=== PATIENT | male | born 1955 | race African-American/Black ===

== ENCOUNTER 2017-03-30 10:48 | Inpatient (IN) | payer OTHER ==
[2017-03-27 10:00] LABS: WBC (NOT ORDERED) (RFLEX) 0 (0-5)
[2017-03-27 10:34] LABS: ASCORBIC ACID (UR NOT ORDER) NEG (NEG); BILIRUBIN, URINE NEGATIVE (NEG); KETONE, URINE NEGATIVE (NEG); LEUKOCYTE ESTERASE(NOT OR NEG (NEG)
[2017-03-27 10:43] LABS: HEMATOCRIT 33.2 % (40.0-51.0)
[2017-03-27 10:59] LABS: BUN (BLOOD UREA NITROGEN) 8 MG/DL (6-23); CALCIUM, SERUM 9.3 MG/DL (8.5-10.4); CHLORIDE, SERUM 106 MMOL/L (96-112); CO2 (CARBON DIOXIDE) 27 MMOL/L (24-34); CREATININE 1.17 MG/DL (0.70-1.30); GFR AFRICAN AMERICAN 78 ML/MIN (>=60); GFR NON AFRICAN AMERICAN 67 ML/MIN (>=60); GLUCOSE, SERUM 102 MG/DL (60-99); POTASSIUM, SERUM 4.4 MMOL/L (3.5-5.3); SODIUM, SERUM 142 MMOL/L (135-148)
--- NOTE | ~2017-03-30 | OP ---
Record Of Operation [facility] [address] [place]. [address] NAME: NISHA COHEN : 55 STATUS : DIS IN PAT#: [id number] AGE: 61 ADM/REG DATE : 03/30/17 MR#: [id number] REPORT SERV DATE: 04/02/17 DICTATED BY: HIEN HAWK DATE: 04/01/17 REPORT STATUS : Draft TRANSCRIBED BY: MODL DATE: 04/01/17 DATE OF PROCEDURE: 03/30/2017 TYPE OF OPERATION: 1. Robot-assisted laparoscopic radical prostatectomy. 2. Robot-assisted laparoscopic bilateral pelvic lymph node dissection. PREOPERATIVE DIAGNOSIS: Intermediate-risk prostate cancer. POSTOPERATIVE DIAGNOSIS: Intermediate-risk prostate cancer. INDICATIONS: Mr. Cohen is a 61-year-old . He has intermediate-risk prostate cancer with high volume on the left side of the prostate. He is here for radical prostatectomy. ANESTHESIA: General. COMPLICATIONS: None. IMPLANTS: 1. An 18-Sudanese Boyce catheter. 2. #10 round RACHEL drain. SPECIMEN: 1. Prostate seminal vesicles. 2. Anterior fat pad. 3. Pelvic lymph nodes. NARRATIVE: The patient was brought to the operating room and identified by his wristband. General anesthesia was induced and Ancef was given for preoperative antibiotics. He was placed in dorsal lithotomy position, prepped and draped in sterile fashion. A 16-Sudanese Boyce catheter was placed into his bladder. The balloon was inflated with 10 mL of sterile water. The abdomen was then insufflated to pressure of 15 mmHg using a Veress needle. A 12 mm port was placed in a supraumbilical position under direct vision. The abdomen was inspected. There were no adhesions. A standard SI port placement was performed with two 8 mm ports on the left side of the body and one 8 mm port on the right side of the body. The 12 mm port and a 5 mm port were placed in the right lower quadrant and right upper quadrant respectively as corporate administrative assistant ports. The patient was placed in Trendelenburg and the robot was docked. I began the operation by incising the peritoneum over the seminal vesicles and vas deferens. These structures were dissected out bilaterally. The vascular supply to the seminal vesicles was clipped and divided bilaterally. The vas deferens were clipped and divided bilaterally. The structures were then lifted anteriorly. Denonvilliers fascia was sharply incised and reflected onto the rectum from the base of the prostate to the apex. Next, the bladder was dropped off the anterior abdominal wall using electrocautery exposing the pubic bone and the prostate. The prostate was sharply divided with bipolar cautery and scissors. This tissue was sent to pathology as anterior fat pad. Record Of Operation [facility] [address] [place]. [address] NAME: NISHA COHEN : 55 STATUS : DIS IN PAT#: [id number] AGE: 61 ADM/REG DATE : 03/30/17 MR#: [id number] REPORT SERV DATE: 04/02/17 DICTATED BY: HIEN HAWK DATE: 04/01/17 REPORT STATUS : Draft TRANSCRIBED BY: OPAL DATE: 04/01/17 A high neurovascular bundle release was performed bilaterally. On the right side, I got between the prostatic capsule and the periprostatic vein and reflected these inferiorly to the groove between the prostate and the neurovascular bundle. On the left side, where the disease was, I entered the veins left a layer of vein on the prostate and then reflected this tissue laterally, the groove between the prostate and neurovascular bundle. Next, a bladder neck sparing operation was performed. The anterior bladder neck was then entered. Exposing a narrow bladder neck, the posterior bladder neck was divided. The posterior bladder neck was then divided off the prostate with electrocautery down to the previously dissected seminal vesicles and vas deferens. These were delivered into the operative field. The pedicles to the prostate were clipped and divided bilaterally. An antegrade nerve- sparing operation was performed bilaterally. Prior to performing the high anterior neurovascular bundle release, the endopelvic fascia were divided bilaterally. The levator fibers were brushed off the prostate bluntly. The puboprostatic ligaments were then divided sharply. This was in dorsal vein. Dorsal vein was taken with a 45 mm endovascular stapler. The urethra was then dissected free and was dissected circumferentially. A 3-0 V-Loc suture was used to oversew the dorsal venous bleeders and it was placed through the periosteum in the pubic bone at the urethral suspension stitch. After the nerve sparing operation was performed, the urethra was sharply divided, leaving adequate urethral length. The posterior striated sphincter was then divided and the prostate was free of all attachments. The prostate was placed into the EndoCatch bag. There was no ongoing bleeding in the pelvis. Next, attention was turned to the pelvic lymph nodes on the left side. The external iliac veins identified. All fibrofatty tissue beneath the external iliac vein within the operative fossa overlying the internal iliac vein was removed. Care was taken to clip and divide lymphatics and vessels proximally and distally. The obturator nerve was spared. Similarly, on the left side, the external vein was identified. All fibrofatty lymphatic tissue beneath the external iliac vein, was in the operative fossa and overlying the internal iliac vessels was removed. Care was taken to clip lymphatics and vessels proximally and distally. These were put into EndoCatch bag the pathology as pelvic lymph nodes. Next, the posterior striated sphincter was reconstructed with a 3-0 V-Loc suture in a fashion described by maddi. A running vesicourethral anastomosis was then performed with 2 interlocked 3-0 V-Loc sutures. The connection was water tight. An 18-Sudanese Boyce catheter was placed into the bladder. The balloon was inflated with 10 mL of sterile water. The bladder was irrigated and the connection was water tight. Next, the robot was removed. A #10 round RACHEL drain was placed in the left most lateral robotic port. The corporate administrative assistant port was closed with 0-Vicryl sutures using Michele-Mir device. All the ports were removed. The supraumbilical incision was enlarged at the skin and fascia level. The prostate and lymph nodes were removed and sent to pathology. The fascia was closed with a 0 Monocryl suture in a [id number] fashion. The wounds were irrigated clear. The subcutaneous tissues were closed with a 3-0 Vicryl suture in an interrupted fashion. Skin was closed with a 4-0 Monocryl suture in a subcuticular fashion. A Dermabond dressing was placed. The patient was awoken from anesthesia and transferred to the recovery room in stable condition. There were no complications. JKM/MODL Record Of Operation [facility] [address] [place]. [address] NAME: NISHA COHEN : 55 STATUS : DIS IN PAT#: [id number] AGE: 61 ADM/REG DATE : 03/30/17 MR#: [id number] REPORT SERV DATE: 05/15/17 DICTATED BY: HIEN HAWK DATE: 04/01/17 REPORT STATUS : Draft TRANSCRIBED BY: OPAL DATE: 04/01/17 Hien Hawk MD / [id number] CC: Hien Hawk MD NO PCP
[~2017-03-30 10:48] MED LIST: ACET500CAP PO; HYDROCHLOROT25 MG PO; MOBIC15 MG PO; PRILO PO; PRIN5 PO; VITAMIN D31000 UNIT PO
[2017-03-30 14:19] LABS: HEMOGLOBIN 8.6 g/dL (13.6-17.8)
[2017-03-30 14:24] LABS: HEMATOCRIT 28.3 % (40.0-51.0)
[2017-03-30 18:51] LABS: BASOPHILS 0.1 %; BASOPHILS ABSOLUTE 0.02 10/3/uL (0.0-0.16); EOSINOPHILS 0 %; HEMATOCRIT 32.4 % (40.0-51.0); HEMOGLOBIN 10.2 g/dL (13.6-17.8); IMMATURE GRANULOCYTES 0.5 %; IMMATURE GRANULOCYTES ABSOLUTE 0.07 10/3/uL (0.0-0.11); LYMPHOCYTES 7.2 %; LYMPHOCYTES ABSOLUTE 1.04 10/3/uL (0.67-4.30); MANUAL DIFF NO %; MEAN CORPUS HGB CONC 31.5 g/dL (32.0-36.0); MEAN CORPUSCULAR HEMOGLOB 24.8 pg (26.0-34.0); MEAN CORPUSCULAR VOLUME 78.6 fL (80-100); MEAN PLATELET VOLUME 8.1 fL (9.2-13.0); MONOCYTES 1.3 %; MONOCYTES ABSOLUTE 0.19 10/3/uL (0.21-1.20); NEUTROPHILS 90.9 %; NEUTROPHILS ABSOLUTE 13.16 10/3/uL (2.02-8.40); PLATELET COUNT 302 10/3/uL (150-400); RBC DISTRIBUTION WIDTH 19.9 % (12.0-16.0); RED CELL COUNT 4.12 10/6/uL (4.7-6.1); WHITE BLOOD CELLS 14.5 10/3/uL (4.5-10.5)
[2017-03-30 19:05] LABS: BUN (BLOOD UREA NITROGEN) 7 MG/DL (6-23); CALCIUM, SERUM 8.4 MG/DL (8.5-10.4); CHLORIDE, SERUM 105 MMOL/L (96-112); CO2 (CARBON DIOXIDE) 28 MMOL/L (24-34); CREATININE 1.03 MG/DL (0.70-1.30); GFR AFRICAN AMERICAN 90 ML/MIN (>=60); GFR NON AFRICAN AMERICAN 78 ML/MIN (>=60); POTASSIUM, SERUM 4.4 MMOL/L (3.5-5.3); SODIUM, SERUM 137 MMOL/L (135-148)
[2017-03-30 19:06] LABS: GLUCOSE, SERUM 181 MG/DL (60-99)
[2017-03-31 07:13] LABS: BASOPHILS 0.1 %; BASOPHILS ABSOLUTE 0.01 10/3/uL (0.0-0.16); EOSINOPHILS 0 %; HEMATOCRIT 33.7 % (40.0-51.0); HEMOGLOBIN 10.7 g/dL (13.6-17.8); IMMATURE GRANULOCYTES 0.4 %; IMMATURE GRANULOCYTES ABSOLUTE 0.06 10/3/uL (0.0-0.11); LYMPHOCYTES 10.4 %; LYMPHOCYTES ABSOLUTE 1.53 10/3/uL (0.67-4.30); MEAN CORPUS HGB CONC 31.8 g/dL (32.0-36.0); MEAN CORPUSCULAR HEMOGLOB 24.7 pg (26.0-34.0); MEAN CORPUSCULAR VOLUME 77.8 fL (80-100); MEAN PLATELET VOLUME 8.2 fL (9.2-13.0); MONOCYTES 14.7 %; MONOCYTES ABSOLUTE 2.16 10/3/uL (0.21-1.20); NEUTROPHILS 74.4 %; NEUTROPHILS ABSOLUTE 10.91 10/3/uL (2.02-8.40); PLATELET COUNT 305 10/3/uL (150-400); RED CELL COUNT 4.33 10/6/uL (4.7-6.1); WHITE BLOOD CELLS 14.7 10/3/uL (4.5-10.5)
[2017-03-31 07:24] LABS: BUN (BLOOD UREA NITROGEN) 9 MG/DL (6-23); CALCIUM, SERUM 8.3 MG/DL (8.5-10.4); CHLORIDE, SERUM 103 MMOL/L (96-112); CO2 (CARBON DIOXIDE) 27 MMOL/L (24-34); CREATININE 1.07 MG/DL (0.70-1.30); GFR AFRICAN AMERICAN 86 ML/MIN (>=60); GFR NON AFRICAN AMERICAN 75 ML/MIN (>=60); GLUCOSE, SERUM 133 MG/DL (60-99); POTASSIUM, SERUM 4.2 MMOL/L (3.5-5.3); SODIUM, SERUM 135 MMOL/L (135-148)
[2017-03-31 07:27] LABS: MANUAL DIFF NO %
[2017-03-31] MEDS ORDERED: DSS PO (16:52)
[2017-03-31] MEDS ORDERED: VIAGRA100 MG PO (16:52)
[2017-03-31] MEDS ORDERED: PCET PO (16:53)
[2017-03-31] MEDS ORDERED: CIP5 PO (16:53)
== END 2017-03-31 19:12 | disposition home or self-care (01) | DRG 708 ==
LOC: SDC/OF 10:48 → PACU 18:34 → 4SO 20:16
PROVIDERS: Anesthesiology; Urology
PROC: 0VT34ZZ Resection of Bilateral Seminal Vesicles, Percutaneous Endoscopic Approach (ICD-10-PCS; principal; 2017-03-30 12:30)
PROC: 0VT04ZZ Resection of Prostate, Percutaneous Endoscopic Approach (ICD-10-PCS; principal; 2017-03-30 12:30)
PROC: 8E0W4CZ Robotic Assisted Procedure of Trunk Region, Percutaneous Endoscopic Approach (ICD-10-PCS; principal; 2017-03-30 12:30)
PROC: 07TC4ZZ Resection of Pelvis Lymphatic, Percutaneous Endoscopic Approach (ICD-10-PCS; principal; 2017-03-30 12:30)
PROC: 0VTQ4ZZ Resection of Bilateral Vas Deferens, Percutaneous Endoscopic Approach (ICD-10-PCS; principal; 2017-03-30 12:30)
DX: C61 Malignant neoplasm of prostate (principal); I10 Essential (primary) hypertension; Z72.0 Tobacco use; F12.90 Cannabis use, unspecified, uncomplicated; D64.9 Anemia, unspecified; K21.9 Gastro-esophageal reflux disease without esophagitis; M19.90 Unspecified osteoarthritis, unspecified site
CPT/HCPCS: 36415; 80048; 81001; 82570; 85014; 85018; 85025; 86850; 86900; 86901; 86920; 88304; 88307; 88309; 93005; A9270-GY; J0690; J1170; J1885; J2250; J2405; J2710; J2795; J3010; P9016